=== PATIENT | male | born 1980 | race Caucasian/White ===

== ENCOUNTER 2019-10-09 17:14 | Emergency (ER) | payer BC, SELFPAY ==
--- NOTE | ~2019-10-09 | XR_ITS ---
EXAMINATION: XR chest 2V DATE: 10/09/2019 18:04 INDICATION: Cough and congestion TECHNIQUE: PA and lateral views of the chest are obtained. COMPARISON: 03/19/2018 FINDINGS: The lungs are free of acute opacities. There is no pleural effusion or pneumothorax. The ca rdiomediastinal silhouette is normal. There is mild thoracic spondylosis. IMPRESSION: 1. No acute cardiopulmonary abnormality. Reviewed, dictated and finalized at location A.
[2019-10-09 17:37] VITALS: BP 143/71; PULSE 90; RESP 16; TEMP 36.8; O2SAT 97
--- NOTE | 2019-10-09 17:47 | ED.GENADULT ---
HPI - General Adult General Chief complaint: Upper Respiratory Infection Stated complaint: flem in chest Time Seen by Provider: 10/09/19 17:47 Source: patient and RN notes reviewed Mode of arrival: ambulatory Limitations: no limitations History of Present Illness HPI narrative: 38-year-old male presents with complains of dry cough, chest congestion, wheezing, facial pressure, upper respiratory symptoms for the past 14 days. Nyquil, Dayquil, and Mucinex without relief. Dry cough with intermittent clear phlegm. Rhinorrhea and nasal congestion. Denies sore throat. No high fevers, drooling, neck or throat swelling. No chest pain, or shortness of breath. No exacerbation factors. Remains active. The patient reports he have not been diagnosed with COVID-19. The patient reports he is not waiting for the results of a COVID-19 lab test. The patient reports he do not have fever, chills, weakness, fatigue, myalgia, or facial swelling. The patient reports he do not have a new or worsening cough or shortness of breath. Denies chest pain. The patient reports he do not have any sore throat, nausea, vomiting, abdominal pain, and diarrhea. Tolerating po intake well. Denies recent traveling in the last month. Denies concerns for COVID-19 or exposures. At this time, patient is not suspected of having COVID-19. Some parts of this dictation were generated by voice recognition software and may contain typographical and/or grammatical inaccuracies. Related Data Allergies Allergy/AdvReac Type Severity Reaction Status Date / Time No Known Allergies Allergy Unverified 12/24/18 11:03 Review of Systems Review of Systems: Narrative: CONSTITUTIONAL: Denies fever, chills, sweats. EYES: Denies visual changes, redness, discharge. ENT: Complains of rhinorrhea, congestion, facial pressure. Denies sore throat, otalgia. CARDIOVASCULAR: Denies chest pain, palpitations, edema. RESPIRATORY: Denies dyspnea. Complains of wheezing, dry cough with intermittent productive phlegm. GASTROINTESTINAL: Denies abdominal pain, nausea, vomiting, diarrhea. GENITOURINARY: Denies dysuria, hematuria, abnormal discharge. SKIN: Denies rash or itching. MUSCULOSKELETAL: Denies acute back pain, joint pain, or myalgia. NEUROLOGIC: Denies numbness or focal weakness. PSYCHIATRIC: Denies anxiety or depression. All systems reviewed & are unremarkable except as noted in HPI and below. [facility] Past Medical History Medical History No significant past medical history Surgical History Surgical History No significant past surgical history Family History Family History Father Hypertension Mother Alive and well Social History Social History Smoking status: Light tobacco smoker Second hand tobacco smoke exposure: No Alcohol intake: current Substance use: never Living arrangements: with family Occupation/Education: occupation Gender identity (if verbalized by the patient): Male Comments At time of signature, agree with nurse past medical, surgical, social, and family history. There is no relevant family history pertinent to the presenting complaint. Exam Narrative: Exam Narrative: GENERAL: This is a well-nourished, well-developed patient, in no apparent distress. Talks in full sentences and ambulates with steady gait without dyspnea. HEAD: normocephalic, atraumatic. EYES: PERRL. Sclera clear/white. Vision is grossly intact. EARS: External ears normal, auditory canals clear and without drainage, TMs normal without perforation. Hearing grossly intact. NOSE: External nose normal with no obvious nasal discharge, nares with mild-moderate redness and enlarged turbinates, no rhinorrhea. THROAT: Mucous membranes moist, posterior pharynx kati
[2019-10-09] MEDS: predniSONE 20 MG TABLET 60 MG PO (18:08)
[2019-10-09] MEDS: ALBUTEROL SULFATE NEB 2.5 MG/3 ML INH INHALATION (18:08)
[2019-10-09] MEDS: IPRATROPIUM BR 0.02% INH SOLN 0.5 MG/2.5 ML VIAL INHALATION (18:08)
== END 2019-10-09 18:40 | disposition home or self-care (01) ==
PROVIDERS: Emergency Provider Nurse Practitioner Family; PCP Emergency Medicine
DX: J40 Bronchitis, not specified as acute or chronic (principal); J32.9 Chronic sinusitis, unspecified
CPT/HCPCS: 71046; 94640; 99213; G0463; J7512

== ENCOUNTER 2019-12-27 11:32 | Emergency (ER) | payer BC, SELFPAY ==
--- NOTE | 2019-12-27 11:35 | ED.EYEPROB ---
HPI - Eye Problem General Stated complaint: right eye red/swollen Source: patient and RN notes reviewed Mode of arrival: ambulatory Limitations: no limitations History of Present Illness chief complaint: eye redness Related Data Allergies Allergy/AdvReac Type Severity Reaction Status Date / Time No Known Allergies Allergy Unverified 12/24/18 11:03 Review of Systems Review of Systems: Narrative: CONSTITUTIONAL: Denies malaise, chills, sweats, or fever. EYES: Denies visual changes, redness, or discharge. ENT: Denies rhinorrhea, congestion, sinus pain, otalgia or sore throat. CARDIOVASCULAR: Denies chest pain, palpitations, or edema. RESPIRATORY: Denies cough or dyspnea. GASTROINTESTINAL: Denies abdominal pain, nausea, vomiting, diarrhea, bloody, or mucous stools. GENITOURINARY: Denies dysuria or hematuria. SKIN: Denies rash or itching. MUSCULOSKELETAL: Denies back pain, joint pain, or myalgia. NEUROLOGIC: Denies numbness, weakness, or headache. PSYCHIATRIC: Denies anxiety or depression. All systems reviewed & are unremarkable except as noted in HPI and below PMFSH Social History Social History Smoking status: Light tobacco smoker Second hand tobacco smoke exposure: No Alcohol intake: current Substance use: never Gender identity (if verbalized by the patient): Male Comments At time of signature, agree with nursing past medical, surgical, social and family history. There is no relevant family history pertinent to the presenting complaint Exam Narrative: Exam Narrative: GENERAL: Well-appearing, well-nourished, and in no acute distress. HEAD: Normocephalic, atraumatic. EYES: PERRLA, conjunctivae clear, and EOMI. No nystagmus. ENT: Nares clear, turbinates pink, no rhinorrhea or epistaxis. Mucous membranes moist. TM pearly rodriguez with sharp light reflex bilaterally; no tragal tenderness. Oropharynx without erythema or lesions. Tonsils not enlarged and without exudate. NECK: Supple. No lymphadenopathy. No jugular venous distension, thyromegaly, or carotid bruits. Carotids were easily palpable bilaterally. CHEST: No respiratory distress. Clear to auscultation. No bony deformities, no asymmetry. Speaks in full sentences. HEART: Regular rate and rhythm. No murmur heard. Normal peripheral pulses. ABDOMEN: Soft, nontender, nondistended, normal active bowel sounds, no palpable masses. EXTREMITIES: Normal range of motion. No edema. Normal strength and sensation. SKIN: Warm, dry, no rash. NEURO: Alert and oriented x3. No focal deficits. Cranial nerves II through XII grossly intact PSYCH: Normal mood and affect Course Course Emergency Course: Patient is aware of diagnosis, understands and agrees to treatment plan. Anticipatory guidance given. Patient agrees to follow-up as directed and is aware of reasons to seek care at the emergency department. Portions of this record may have been created with voice recognition software Vital Signs Vital signs: Reviewed. MDM - Eye Problem MDM Narrative Medical decision making narrative: Consideration of the following conditions may be warranted for the presenting problem, they are not final diagnoses: Bacterial conjunctivitis, allergic conjunctivitis, viral conjunctivitis, foreign body, blepharitis, chalazion, hordeolum, corneal abrasion. Exam findings show no acute concerns or changes; patient is non-toxic appearing and is in no distress. Patient is appropriate for outpatient treatment and follow-up. Critical Care Time Critical Care Time Critical Care Time: No Discharge Plan Discharge Prescriptions: No Action benzonatate 100 mg capsule 100 mg PO BID Qty: 30 RF: 0 fluticasone propionate [Allergy Relief (fluticasone)] 50 mcg/actuation spray,suspension 1 spray NASAL BID Qty: 16 RF: 0 loratadine [Claritin] 10 mg tablet 10 mg PO DAILY 60 Days Qty: 60 RF: 0 prednisone 20 mg tablet 60 mg PO DAILY 7 Days Qty
[2019-12-27 11:44] VITALS: BP 143/88; PULSE 81; RESP 16; TEMP 36.6; O2SAT 99
--- NOTE | 2019-12-27 12:19 | PCDIET ---
Addendum entered by Joslyn Baugh RN 12/27/19 12:52: nurses note Original Note: 1145 prior to triage pt states his made him an appointment with eye doctor and he has decided to go there directly. observed talkative, no apparent distress.
== END 2019-12-27 11:45 | disposition left against medical advice (07) ==
LOC: EXPBETH 11:34
PROVIDERS: Emergency Provider Nurse Practitioner; PCP Emergency Medicine
DX: Z53.21 Procedure and treatment not carried out due to patient leaving prior to being seen by health care provider (principal)
CPT/HCPCS: 99199

== ENCOUNTER 2024-12-15 12:35 | Emergency (ER) | payer BC, SELFPAY ==
--- OUTSIDE RECORDS SUMMARY | 2018-12-26 10:58 | XMS_ITS | Continuity of Care Document ---
Author Organization [facility] Address [address] [place] [address] [place] [address] Phone Care Team Providers Care Finish Specialist Name Role Phone Lance Kelley MD Unavailable Unavailable Allergies, Adverse Reactions, Alerts Substance Reaction Status Criticality No Known Allergies Active No Inform ation Medications Medication Instructions Dosage Effective Dates (start - stop) Status Comments No Drug Therapy Prescribed Procedures Procedure Date PREV VISIT, EST, AGE 18-39 OFFICE/OUTPATIENT VISIT, EST OFFICE/OUTPATIENT VISIT, EST PREV VISIT, NEW, AGE 18-39 OFFICE/OUTPATIENT VISIT, NEW Advance Directives Directive Yes / No Effective Date File Name No Information Encounters Encounter Description Practice Location Reason(s) For Visit Diagnoses Date Provider Providers Copied on Encounter [facility], [address], [id number], [place] tel:[phone] [facility] No Information 9 Warren Lucas. [address], [facility] [place], [id number] , [place]. tel:[phone] Referring Provider: Lance Kelley, [address] [facility] [place], [id number]. tel:[phone] PREV VISIT, EST, AGE 18-39 [facility], [address] [place], [id number], [place] tel:[phone] [facility] Medicine Physical (chief complaint) Encntr for general adult medical exam w/o abnormal findings 6 Warren Lucas. [address], [facility] [place], [id number] , [place]. tel:[phone] Referring Provider: Maddy Cristobal [address], [place], [place], [id number]. tel:[phone] OFFICE/OUTPAT IENT VISIT, [facility], [address], [place], [place], [id number], [place] tel:[phone] [facility] foot pain1 (chief complaint) Pain in right toe(s) 6 Warren Lucas. [address], [place], [place], [id number] , [place]. tel:[phone] Referring Provider: Maddy Cristobal [facility] A, [place], [place], [id number]. tel:[phone] OFFICE/OUTPAT IENT VISIT, [facility], [address] [place], [id number], tel:[phone] [facility] foot pain (chief complaint) toe pain1 (chief complaint) fatigue (chief complaint) Pain in right toe(s)FatigueBody mass index (BMI) 40.0-44.9, adult Fe- 6 Warren Lucas. [address] [place], [id number] , [place]. [phone] Referring Provider: Maddy Cristobal [facility] A, [place], [place], [id number]. tel:[phone] PREV VISIT, NEW, AGE 18-39 [facility], [address] [place], [id number], [place] tel:[phone] [facility] Physical (chief complaint) Dietary surveillance and counselingRoutine Medical ExamSleep ApneaFatigue / MalaiseRash and other nonspecific skin eruptionRoutine Medical Exam 5 Warren Lucas. [address], [place], [place], [id number] , [place]. tel:[phone] Family History Family Member Type Diagnosis Age At Onset Father Problem (finding) Hyperlipidemia Brother Problem (finding) Alive and well Mother Problem (finding) Unknown Disease Father Problem (finding) Hypertension Payers Payer name Insurance type Covered green party ID Authorvarsha tigrecia(s) No Information Social History Type Description Quantity Date Captured Comments Alcohol Use Details Unknown Caffeine Use Details Unknown Tobacco Use Status Smoking Status No Information Sex Male Chief Complaint And Reason For Visit No Information Plan Of Treatment Date Type Action Status Goal Tobacco cessation counseling completed Referral Ordered: Referral: Pulmonary Diseases. ordered History Of Present Illness Encounter Date Complaint History Of Prese nt Illness Physical Pt needs annual physical. Pt denies any complaints. pt denies any ache or pain. He needs physical for work. Pt has not had lab work done for long time foot pain1 Pt has right toe pain, Pt has small equivoal fracture right 2nd and 3rd toe. Pt states that his pain is about 80 % improved. 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 Pt states that norco does help a lot. Pt has been icing the right foot also. Pt is ready to go back to work with full duty. Pt is a cross country truck driver. Pt states that his boss will help him out in case if he has some pain and he can take a rest or break from work during the day. Pt denies any other complaints. Pt denies any swelling anymore fatigue The patient pres ents with fatigue. The patient does not present with abdominal pain, cough, fever, muscle weakness, rash or vomiting. The fatigue is associated with weight gain. The patient denies any constipation, diarrhea, dyspnea and pruritus. Additional information: Pt has chornic fatigue. Pt has sleep apnea most likely. Pt snores and he has difficulty with breathing at night. Pt is noncompliant and he still has not done sleep study yet. toe pain1 Pt was wrestling with his son about 10 days ago and he over extended his right toes. Pt felt some pain around the base of right 2nd and 3rd toes. Pt has not been able to work due to foot pain ,Pt also notices mild pain dorsal right foot. Pt went to ER and xray showed equivocal tiney fx of base of 2nd and 3rd toe. Pt has fracture shoe but he does not wear it. Pt denies any swelling. foot pain Location: foot. Medications Administered Medication Instructions Dosage Effective Dates (start - stop) Status Comments No Drug Therapy Prescribed Instructions Date Instruction Additional Infor marquez Prescribed Activity and Exercise Education Related to Dietary Surveillance and Counseling Prescribed Diet Educ ation/Lifestyle Education Regarding Diet Related to Dietary Surveillance and Counseling Prescribed Diet Educ ation/Lifestyle Education Regarding Diet Related to Dietary Surveillance and Counseling Prescribed Activity and Exercise Education Related to Dietary Surveillance and Counseling Prescribed Activity and Exercise Education Related to Dietary Surveillance and Counseling Prescribed Diet Educ ation/Lifestyle Education Regarding Diet Related to Dietary Surveillance and Counseling Decrease caloric intake Related to Dietary surveillance counseling Physical activity counseling Rel ated to Dietary surveillance counseling Assessments Type Assessment Date No Information
--- NOTE | ~2024-12-15 | XR_ITS ---
EXAMINATION: XR ribs RT 2V w CXR 2V DATE: 12/15/2024 13:03 INDICATION: Post traumatic anterior chest pain and bruising TECHNIQUE: PA and lateral views of the chest and 3 views of the right ribs were obtained. COMPARISON: Chest radiograph dated 10/09/2019 FINDINGS: Lungs are clear with no focal airspace opacities, pulmonary edema, pleural effusion or pneumothorax. Cardiomediastinal silhouette is normal. Mild thoracic spondylosis. No rib fractures. IMPRESSION: 1. No rib fracture or acute cardiopulmonary disease. Reviewed, dictated and finalized at location A.
--- OUTSIDE RECORDS SUMMARY | 2024-12-15 12:37 | XMS_ITS | Clinical Summary ---
Author Organization [address] Address [address] [place] [address] Care Team Providers Care Personal Development Mentor Name Role Phone No, Physician Primary Care Provider [phone] Allergies No known active allergies Medications multivitamin capsule Take 1 capsule by mouth daily Active triamcinolone (KENALOG) 0.1 % creamIndication s:Poison reagan Apply topically 3 (three) times a day for 10 days 45 g 2 2 Active Active Problems No known active problems Encounters Date Type Department Care Team Description 11/09/2024 6:08 PM CDT - 11/09/2024 8:57 PM CDT Emergency [facility] Emergency Department [address] [place] [address] Katie Freire MD Elevated blood pressure reading (Primary Dx); Palpitations Discharge Disposition: Discharge to home or self care from Last 3 Months Social History Tobacco Use Types Packs/Day Years Used Date Smoking Tobacco: Some Days Smokeless Tobacco: Former Personal Safety Answer Date Recorded Have you ever been in or are you currently in a harmful physical or emotional relationship or is someone making you feel afraid or unsafe? Denies 11/09/2024 Sex and Gender Information Value Date Recorded Sex Assigned at Not on file Legal Sex Male 10:56 PM [employer] Gender Identity Not on file Sexual Orientation Not on file Obstetrics History Last Filed Vital Signs Vital Sign Reading Time Taken Comments Blood Pressure 159/65 11/09/2024 8:57 PM CDT Pulse 83 11/09/2024 8:57 PM CDT Temperature 37.1 C (98.8 F) 11/09/2024 4:27 PM CDT Respiratory Rate 19 11/09/2024 8:57 PM CDT Oxygen Saturation 98% 11/09/2024 8:57 PM CDT Inhaled Oxygen Concentration - - Weight 129.3 kg (285 lb) 11/09/2024 4:27 PM CDT Height 177.8 cm (5' 10) 11/09/2024 4:27 PM CDT Body Mass Index 40.89 11/09/2024 4:27 PM CDT Plan of Treatment Health Maintenance Due Date Last Done Comments Colon Cancer Screening-Colonoscopy 1979 Depression Screening 1979 Hepatitis C Screening 1979 DTaP/Tdap/Td Vaccine (1 - Tdap) 10/27/1990 Varicella Vaccines (1 of 2 - 13+ 2-dose series) 1992 Hepatitis B Screening 10/27/1997 Regular Well Visit/Exam 18-64 10/27/1997 Pneumococcal vaccine <65 (1 of 2 - PCV) 10/27/1998 HPV Vaccines (1 - 3-dose SCDM series) 10/27/2006 Influenza Vaccine (#1) 2024 Procedures Procedure Name Priority Date/Time Associated Diagnosis Comments LIPASE STAT 11/09/2024 6:22 PM CDT TSH STAT 11/09/2024 6:22 PM CDT MAGNESIUM Routine 11/09/2024 6:22 PM CDT ETHANOL STAT 11/09/2024 6:22 PM CDT SEPSIS LACTATE WITH REFLEX STAT 11/09/2024 6:22 PM CDT TROPONIN T HIGH-SENSITIVITY 2-HOUR Timed 11/09/2024 6:22 PM CDT XR CHEST PA LATERAL 2 VIEWS ED 11/09/2024 4:44 PM CDT EGFR STAT 11/09/2024 4:33 PM CDT DIFFERENTIAL AUTO STAT 11/09/2024 4:3 3 PM CDT TROPONIN T HIGH-SENSITIVITY SERIES (BASELINE, 2HR, 4HR, 6HR) STAT 11/09/2024 4:33 PM CDT COMPREHENSIVE METABOLIC PANEL STAT 11/09/2024 4:33 PM CDT CBC WITH AUTO DIFFERENTIAL STAT 11/09/2024 4:33 PM CDT ECG 12-LEAD STAT 11/09/2024 4:21 PM CDT from Last 3 Months Results * Troponin T high-sensitivity 2-hour (11/09/2024 6:22 PM CDT) Trop T hs 6 <=22 ng/L [facility] ([place]) Comment: Interpretive Data For further hscTnT resources including the diagnostic algorithm and an aid in interpretation, copy and paste this link: https://nrl.testcatalog.org/show/hsTrop Current Interpretive Data last revised 2020. Trop T hs delta 0 ng/L [facility] ([place]) Trop T hs interp Insignificant [facility] ([place]) Blood 11/09/2024 6:22 PM CDT 11/09/2024 6:41 PM CDT Katie Freire MD LAB BLOOD ORDERABLE S Final Result [facility] ([place]) 1 [facility] [place] [address] * Sepsis Lactate w/ Reflex (11/09/2024 6:22 PM CDT) Sepsis Lactate 1.8 0.7 - 2.0 mmol/L Blood 11/09/2024 6:22 PM CDT 11/09/2024 6:41 PM CDT Katie Freire MD LAB BLOOD ORDERABLE S Final Result [facility] ([place]) 1 [facility] [place] [address] * TSH (11/09/2024 6:22 PM CDT) Thyroid Stimulating Hormone 1.53 0.30 - 4.20 mcIUnit/mL [facility] ([place]) Blood 11/09/2024 6:22 PM CDT 11/09/2024 6:41 PM CDT Katie Freire MD LAB BLOOD ORDERABLE S Final Result Performing Organization Address City/[facility]/ZIP Co de Phone Number [facility] ([place]) 1 [facility] [place] [address] * Magnesium (11/09/2024 6:22 PM CDT) Magnesium 2.1 1.4 - 2.5 mg/dL [facility] ([place]) Blood 11/09/2024 6:22 PM CDT 11/09/2024 6:41 PM CDT us Katie Freire MD LAB BLOOD ORDERABLE S Final Result Performing Organization Address City/[facility]/ZIP Co de Phone Number [facility] ([place]) 1 [facility] [place] [address] * Lipase (11/09/2024 6:22 PM CDT) Lipase 27 10 - 99 Units/L [facility] ([place]) Blood 11/09/2024 6:22 PM CDT 11/09/2024 6:47 PM CDT Katie Freire MD LAB BLOOD ORDERABLE S Final Result [facility] ([place]) 1 [facility] [place] [address] * Ethanol (11/09/2024 6:22 PM CDT) Ethanol <10 <=10 mg/dL [facility] ([place]) Comment: Interpretive Data Legal limit of intoxication > or = 80 mg/dL Levels > or = 400 mg/dL are potentially TOXIC. Current interpretive data was last revised on 2018. Blood 11/09/2024 6:22 PM CDT 11/09/2024 6:41 PM CDT us Katie Freire MD LAB BLOOD ORDERABLE S Final Result [facility] ([place]) 1 [facility] [place] [address] * XR Chest PA Lateral 2 Views (If patient hemodynamically stable and ambulatory) (11/09/2024 4:44 PM CDT) Anatomical Region Laterality Modality Body, Chest N/A Computed Radiogr aphy 11/09/2024 5:06 PM CDT Narrative 11/09/2024 5:06 PM CDT EXAM DESCRIPTION: XR CHEST PA LATERAL 2 VIEWS REASON FOR STUDY: chest pain C/o rapid heart rate, numbness in hands, headache and general feeling of something is not right Today. 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 Stated that he stopped sweating yesterday while working. Stated that he is drinking a lot of water and electrolytes. Smoker TECHNIQUE: 2 radiographic view(s) of the chest. COMPARISON: None FINDINGS: LUNGS: No focal opacity, pleural effusion, or pneumothorax. HEART/MEDIASTINUM: Cardiac silhouette normal in size. Mediastinal and hilar contours appear normal. LINES/TUBES: None. BONES: No acute osseous abnormality. IMPRESSION: No acute cardiopulmonary abnormality. THIS IS AN ELECTRONICALLY VERIFIED FINAL REPORT 11/09/2024 5:06 PM - Electronically signed by Ankur Gannon M.D. KT: PRICILA Report ID: [id number] Reading Location: [id number] Procedure Note Ankur Gannon MD - 11/09/2024 EXAM DESCRIPTION: XR CHEST PA LATERAL 2 VIEWS REASON FOR STUDY: chest pain C/o rapid heart rate, numbness in hands, headache and general feeling of something is not right Today. Pt works outside and stated that hebelieves he may be dehydrated. Stated that he stopped sweating yesterday while working. Stated that he is drinking a lot of water and electrolytes. Smoker TECHNIQUE: 2 radiographic view(s) of the chest. COMPARISON: None FINDINGS: LUNGS: No focal opacity, pleural effusion, or pneumothorax. HEART/MEDIASTINUM: Cardiac silhouette normal in size. Mediastinal andhilar contours appear normal. LINES/TUBES: None. BONES: No acute osseous abnormality. IMPRESSION: No acute cardiopulmonary abnormality. THIS IS AN ELECTRONICALLY VERIFIED FINAL REPORT 11/09/2024 5:06 PM - Electronically signed by Ankur Gannon M.D. KT: PRICILA Report ID: [id number] Reading Location: [id number] Result [facility] Katie Freire MD IMG XR PROCEDURES F inal Result * Troponin T high-sensitivity series (baseline, 2hr, 4hr, 6hr) (11/09/2024 4:33 PM CDT) Trop T hs 6 <=22 ng/L [facility] ([place]) Comment: Interpretive Data For further hscTnT resources including the diagnostic algorithm and an aid in interpretation, copy and paste this link: https://nrl.testcatalog.org/show/hsTrop Current Interpretive Data last revised 2020. Blood 11/09/2024 4:33 PM CDT 11/09/2024 4:37 PM CDT Katie Freire MD LAB BLOOD ORDERABLE S Final Result [facility] ([place]) 1 [facility] [place] [address] * eGFR (11/09/2024 4:33 PM CDT) Pathologist [facility] eGFR >90 >=60 mL/min/1. 73 m2 Comment: Interpretive Data Reference Interval Normal >/= 90 mL/min/1.73m2 Mildly decreased* 60 - 89 mL/min/1.73m2 Mildly to moderately decreased 45 - 59 mL/min/1.73m2 Moderately to severely decreased 30 - 44 mL/min/1.73m2 Severely decreased 15 - 29 mL/min/1.73m2 Kidney Failure < 15 mL/min/1.73m2 *Relative to young adult level Estimated glomerular filtration rate is determined by the 2020 CKD-EPI equation recommended by the National Kidney Foundation (A Unifying Approach to GFR Estimation: Recommendations of the NKF-ASK Task Force on Reassessing the Inclusion of Race in Diagnosing Kidney Disease, JASN 2020). The CKD-EPI equation should not be used for patients with unstable renal function and has not been validated in children and those over 70. Current interpretive data was last reviewed 2021. Blood 11/09/2024 4:33 PM CDT 11/09/2024 4:37 PM CDT us Katie Freire MD LAB BLOOD ORDERABLE S Final Result [facility] ([place]) 1 [facility] [place] [address] * Differential, auto (11/09/2024 4:33 PM CDT) Pathologist [facility] Neutrophil abs 5.05 1.50 - 6.50 K/cumm Imm gran abs 0.05 0.00 - 0.10 K/cumm [facility] ([place]) Lymphocyte abs 2.63 0.80 - 3.30 K/cumm [facility] ([place]) Monocyte abs 0.70 0.20 - 0.80 K/cumm [facility] ([place]) Eosinophil abs 0.07 0.00 - 0.50 K/cumm [facility] ([place]) Basophil abs 0.05 0.00 - 0.10 K/cumm [facility] ([place]) Neutrophil pct 59.0 % [facility] ([place]) Comment: Interpretive Data Percent cell count reference ranges are not reported, since discordance with absolute values may lead to misinterpretation of CBC data. Current Interpretive Data was last revised on 2017. Imm gran pct 0.6 % [facility] ([place]) Comment: Interpretive Data Percent cell count reference ranges are not reported, since discordance with absolute values may lead to misinterpretation of CBC data. Current Interpretive Data was last revised on 2017. Lymphocyte pct 30.8 % [facility] ([place]) Comment: Interpretive Data Percent cell count reference ranges are not reported, since discordance with absolute values may lead to misinterpretation of CBC data. Current Interpretive Data was last revised on 2017. Monocyte pct 8.2 % [facility] ([place]) Comment: Interpretive Data Percent cell count reference ranges are not reported, since discordance with absolute values may lead to misinterpretation of CBC data. Current Interpretive Data was last revised on 2017. Eosinophil pct 0.8 % [facility] ([place]) Comment: Interpretive Data Percent cell count reference ranges are not reported, since discordance with absolute values may lead to misinterpretation of CBC data. Current Interpretive Data was last revised on 2017. Basophil pct 0.6 % [facility] ([place]) Comment: Interpretive Data Percent cell count reference ranges are not reported, since discordance with absolute values may lead to misinterpretation of CBC data. Current Interpretive Data was last revised on 2017. Blood 11/09/2024 4:33 PM CDT 11/09/2024 4:37 PM CDT us Katie Freire MD LAB BLOOD ORDERABLE S Final Result [facility] ([place]) 1 [facility] [place] [address] * (ABNORMAL) CBC with auto differential (11/09/2024 4:33 PM CDT) WBC 8.55 3.80 - 9.90 K/cumm Hgb 13.8 13.0 - 17.5 g/dL [facility] ([place]) Hct 40.1 38.9 - 50.3 % [facility] ([place]) Plt 239 150 - 400 K/cumm [facility] ([place]) MPV 8.5(L) 9.1 - 12.3 fL [facility] ([place]) RBC 4.26(L) 4.30 - 5.80 M/cumm [facility] ([place]) MCV 94.1 81.3 - 96.4 fL [facility] ([place]) MCH 32.4 27.1 - 33.3 pg [facility] ([place]) MCHC 34.4 32.3 - 35.7 g/dL [facility] ([place]) RDW CV 13.4 11.1 - 14.9 % [facility] ([place]) RDW SD 46.2 35.7 - 48.1 fL [facility] ([place]) NRBC abs 0.00 0.00 - 0.01 K/cumm [facility] ([place]) Blood Venous blood specimen / Unknown 11/09/2024 4:33 PM CDT 11/09/2024 4:37 PM CDT us Katie Freire MD LAB BLOOD ORDERABLE S Final Result [facility] ([place]) 1 [facility] [place] [address] * (ABNORMAL) Comprehensive metabolic panel (11/09/2024 4:33 PM CDT) Pathologist [facility] Sodium 136 135 - 145 mmol/L [facility] ([place]) Potassium, pl 3.8 3.3 - 4.9 mmol/L [facility] ([place]) Chloride 100 97 - 110 mmol/L [facility] ([place]) CO2 21(L) 22 - 32 mmol/L [facility] ([place]) Anion gap 15 2 - 15 mmol/L [facility] ([place]) BUN 12 6 - 25 mg/dL [facility] ([place]) Creatinine 0.75(L) 0.80 - 1.30 mg/dL [facility] ([place]) Glucose 108 70 - 199 mg/dL [facility] ([place]) Comment: Interpretive Data Fasting glucose >/= 126 mg/dl is diagnostic for diabetes. Fasting is defined as no caloric intake for at least 8 hours. Fasting glucose between 100 mg/dl to 125 mg/dl is diagnostic of prediabetes. In a patient with classic symptoms of hyperglycemia or hyperglycemic crisis, a random glucose >/= 200 mg/dl is diagnostic for diabetes. In the absence of unequivocal hyperglycemia, results should be confirmed by repeat testing. The classification and Diagnosis of Diabetes Diabetes Care 202; 46: S19-S40. Current interpretive data was last revised 2022. Calcium 9.2 8.5 - 10.3 mg/dL [facility] ([place]) Bilirubin, total 0.3 0.1 - 1.2 mg/dL [facility] ([place]) Protein, pl 6.7 6.5 - 8.5 g/dL [facility] ([place]) Albumin 4.3 3.5 - 5.0 g/dL [facility] ([place]) Alk phos 51 40 - 130 Units/L [facility] ([place]) ALT 40 7 - 55 Units/L [facility] ([place]) AST 26 10 - 50 Units/L [facility] ([place]) Blood 11/09/2024 4:33 PM CDT 11/09/2024 4:37 PM CDT us Katie Freire MD LAB BLOOD ORDERABLE S Final Result [facility] 1 [facility] [place] [address] * ECG 12 lead (11/09/2024 4:21 PM CDT) 11/09/2024 4:[address] [facility] - 11/10/2024 6:52 AM CDT Vent Rate: 95 bpm RR Interval: 631 msec [place] Interval: 140 msec QRS Duration: 114 msec QT Interval: 362 msec QTC Interval: 414 msec P-R-T [place]: 14 - 8 - 59 degrees IMPRESSION: SINUS RHYTHM MODERATE INTRAVENTRICULAR CONDUCTION DELAY [110+ ms QRS DURATION] BORDERLINE ECG Electronically Signed By: Teto Azevedo MD Katie Freire MD ECG ORDERABLES Fin al Result [facility] from Last 3 Months Insurance [facility], [facility] Care Teams Personal Development Mentor Relationship Specialty Start Date End Date No, Physician PCP - General 11/28/21
--- OUTSIDE RECORDS SUMMARY | 2024-12-15 12:37 | XMS_ITS | Clinical Summary ---
Author Organization [facility] Address [address] [facility] [place] [address] Care Team Providers Care Doctor Of Dental Medicine Name Role Phone None, Physician Primary Care Provider Unavailabl e Source Comments [facility],non-owned Affiliates and Associated Physician Practices is amultiple site organization consisting of ambulatory clinics and hospital sitesin [place], [place], [place] and [place]. This disclosure is being madepursuant to the Care Everywhere program and may not contain all information available regarding this patient. Last updated 18.[facility] Allergies No known active allergies Medications * Be aware that medications may not be up to date on this document. Always verify current medications with the patient. No known medications Encounters Date Type Department Care Team Description 09/17/2024 11:17 AM CDT - 09/17/2024 12:36 PM CDT Emergency ER at [address] [address] Visit for suture removal Discharge Disposition: Home or Self Care 09/17/2024 Travel from Last 3 Months Social History Tobacco Use Types Packs/Day Years Used Date Smoking Tobacco: Never Assessed Sex and Gender Information Value Date Recorded Sex Assigned at Not on file Legal Sex Male 1:16 PM CDT Gender Identity Not on file Sexual Orientation Not on file Last Filed Vital Signs Vital Sign Reading Time Taken Comments Blood Pressure 165/87 09/17/2024 11:15 AM CDT Pulse 93 09/17/2024 11:15 AM CDT Temperature 36.2 C (97.1 F) 09/17/2024 11:15 AM CDT Respiratory Rate 18 09/17/2024 11:15 AM CDT Oxygen Saturation 98% 09/17/2024 11:15 AM CDT Inhaled Oxygen Concentration - - Weight - - Height 177.8 cm (5' 10) 09/17/2024 11:15 AM CDT Body Mass Index - - Plan of Treatment Health Maintenance Due Date Last Done Comments COLOGUARD (AGES 45-75) - COL ON CA SCREENING 1979 COLON MONITORING 1979 COLONOSCOPY - COLON CA SCREENING 1979 CT COLONOGRAPHY - COLON CA SCREENING 1979 Colorectal Cancer Screening 1979 FIT - COLON CA SCREENING 1979 FLEX SIG - COLON CA SCREENING 1979 LIPID TESTING 1979 HIV SCREENING 10/27/1994 HEPATITIS C SCREENING 10/23/1997 DTAP/TDAP/TD VACCINES (1 - Tdap) 10/27/1998 HEPATITIS B VACCINE (1 of 3 - 19+ 3-dose series) 10/27/1998 HPV VACCINE (1 - 3-dose SCDM series) 10/27/2006 COVID-19 VACCINE ( - 2023-2 5 season) 2023 DEPRESSION SCREENING 04/16/2024 INFLUENZA VACCINE (#1) 2024 ZOSTER VACCINE (1 of 2) 10/27/2029 HIB VACCINE Aged Out No longer eligi ble based on patient's age to complete this topic MENINGOCOCCAL (Group B) VACC INE SHARED DECISION-MAKING Aged Out No longer eligibl e based on patient's age to complete this topic MENINGOCOCCAL GROUPS A/C/Y/W VACCINE Aged Out No longer eligible b ased on patient's age to complete this topic PNEUMOCOCCAL VACCINE Aged Out No long er eligible based on patient's age to complete this topic Insurance PAYOR GENERIC PAYOR GENERIC [employer]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
[2024-12-15 12:42] VITALS: BP 175/87; PULSE 83; RESP 20; TEMP 36.2; O2SAT 98
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
== END 2024-12-15 13:45 | disposition home or self-care (01) ==
DX: S20.211A Contusion of right front wall of thorax, initial encounter (principal); Y04.0XXA Assault by unarmed brawl or fight, initial encounter; F17.200 Nicotine dependence, unspecified, uncomplicated
CPT/HCPCS: 71046; 71100; 99213; G0463